=== PATIENT | male | born 1940 | race Caucasian/White ===

== ENCOUNTER 2016-12-07 08:36 | Observation (INO) | payer MEDICARE ==
[~2016-12-07] VITALS: Ht 185.4 cm; Wt 109.7 kg
[2016-12-07] MEDS: methylPREDNISolone ACETATE 40 MG/ML VIAL ONE ×2 (07:10→12:37)
[~2016-12-07 08:36] MED LIST: ALPR0.5T3 PO; ASPI81CH CHEW; ATEN50TA PO; AZEL1SPR2 NASAL; BUPIVACAINE HCL PF 0.5% 30 ML VIAL ONE; BUTATAB6 PO; CETI10CA3 PO; FISH1000 PO; FLUT50SP NASAL; GELFOAM SIZE 100 ONE; GENTAMICIN SULFATE 80 MG/2 ML VIAL ONE; HYDR-3583 PO; INDO50CA PO; MELO7.5T4 PO; NITR0.4S SL; SIMV20TA PO; THROMBIN (TOPICAL) 5,000 UNIT VIAL ONE; TIZA4CAP3 PO; VITA10004 PO; VITA100064 PO; ceFAZolin 2 GM PREMIX 50 ML ONE
[2016-12-07 09:15] VITALS: BP 157/93; PULSE 52; RESP 20; TEMP 97.8; O2SAT 99
[2016-12-07] MEDS ORDERED: CHLORHEXIDINE GLUCONATE 2 % 1 PACK (2 CLOTHS) TOPICAL PRN (09:30)
[2016-12-07] MEDS: SODIUM CHLOR 0.9% 1000 ML INJ 1,000 ML IV SCH (09:30)
[2016-12-07] MEDS ORDERED: METOPROLOL TARTRATE 25 MG TAB PO PRN (09:30)
[2016-12-07] MEDS ORDERED: INSULIN HUMAN REGULAR 1,000 UNITS/10 ML VIAL SQ PRN (09:30)
[2016-12-07] MEDS ORDERED: SODIUM CHLORID 0.9% 500 ML IV PRN (09:30)
[2016-12-07] MEDS ORDERED: LACTATED RINGER'S 1000 ML IV PRN (09:30)
[2016-12-07] MEDS ORDERED: POVIDONE IODINE 5% (ANTISEPSIS KIT) 4 APPLICATIONS EACH NARE PRN (09:30)
[2016-12-07] MEDS ORDERED: COLA100C PO (09:43)
[2016-12-07] MEDS: VANCOMYCIN HCL 1000 MG ON-CALL/NS 250 ML IV SCH ×4 (10:10→17:22)
[2016-12-07] MEDS ORDERED: THROMBIN (TOPICAL) 5,000 UNIT VIAL ONE (11:14)
[2016-12-07] MEDS ORDERED: ACETAMINOPHEN 1000 MG/100 ML VIAL IV ONE (11:21)
[2016-12-07] MEDS ORDERED: ARTIFICIAL TEARS OPTH OINT 3.5 APPLIC/3.5 GM TUBO ONE (11:21)
[2016-12-07] MEDS ORDERED: MIDAZOLAM HCL 2 MG/2 ML VIAL ONE (11:22)
[2016-12-07] MEDS ORDERED: fentaNYL CITRATE 250 MCG/5 ML AMP ONE ×2 (11:22→15:48)
[2016-12-07] MEDS ORDERED: FAMOTIDINE 20 MG/2 ML VIAL ONE (11:27)
[2016-12-07] MEDS ORDERED: LACTATED RINGER'S 1000 ML INJ 1,000 ML IV ONE (11:39)
[2016-12-07] MEDS ORDERED: PROPOFOL 200 MG/20 ML AMP IV ONE (11:39)
[2016-12-07] MEDS ORDERED: ONDANSETRON HCL 4 MG/2 ML VIAL IV PUSH ONE (11:39)
[2016-12-07] MEDS ORDERED: ePHEDrine/NS 25 MG/5 ML SYR IV ONE (11:39)
[2016-12-07] MEDS ORDERED: SODIUM CHLORIDE 0.9% FLUSH 5 ML FLUSH IVF PRN (13:45)
[2016-12-07] MEDS ORDERED: ACETAMINOPHEN/HYDROcodone 325 MG/10 MG TAB PO PRN (13:45)
[2016-12-07] MEDS ORDERED: cloNIDine HCL 0.1 MG TAB PO/NG PRN (13:45)
[2016-12-07] MEDS ORDERED: INDOMETHACIN 50 MG CAP PO PRN (13:45)
[2016-12-07] MEDS ORDERED: MORPHINE SULFATE 4 MG/ML INJ IV PUSH PRN (13:45)
[2016-12-07] MEDS ORDERED: ONDANSETRON HCL 4 MG/2 ML VIAL IV PRN (13:45)
[2016-12-07] MEDS ORDERED: ACETAMINOPHEN 325 MG TAB PO PRN (13:45)
[2016-12-07] MEDS: SODIUM CHLORIDE 0.9% FLUSH 5 ML FLUSH IVF SCH ×2 (13:45→20:10)
[2016-12-07] MEDS ORDERED: MENTHOL LOZENGE BUCCAL PRN (13:45)
[2016-12-07] MEDS ORDERED: ALPRAZolam 0.5 MG TAB PO PRN (13:45)
[2016-12-07] MEDS ORDERED: DO NOT ADM ANY ANTICOAGULANT DRUGS PRN (16:20)
--- NOTE | 2016-12-07 16:27 | RADRPT ---
EXAM DATE/TIME: 12/07/2016 12:38 [place] COMPARISON: No previous studies available for comparison. INDICATIONS : Level localization L2-L3, L3-L4, L4-L5 laminectomy. MEDICAL HISTORY : None. SURGICAL HISTORY : None. ENCOUNTER: Initial ACUITY: 1 day PAIN SCORE: Non-responsive. LOCATION: Lumbar spine FINDINGS: Metallic probe is directed at the L2-3 interspace and the L4 pedicle. CONCLUSION: Localization as described above.. Hugo Morel MD FACR on December 07, 2016 at 16:24 Board Certified Radiologist. This report was verified electronically.
[2016-12-07] MEDS ORDERED: *morphine SULFATE 8 MG/ML PERIprocedure ONLY ONE ×3 (16:30→17:18)
--- NOTE | 2016-12-07 16:39 | PD.OP ---
Operative Report Date of Surgery: Dec 07, 2016 Preoperative Diagnosis: lumbar spinal stenosis Postoperative Diagnosis: lumbar spinal stenosis Procedure: L2-3, L3-4, L4-5 laminectomy, mesiofacetectomy, foraminotomy, microsurgical resection Surgeon: Sandeep Reno Repairer Evaporator(s): devin kemp Operation and Findings: INDICATIONS FOR THE SURGICAL PROCEDURE Mr Burns is a 76 year-old male who presented with intractable back pain and clinical evidence of neurogenic claudication with lower extremity radiculopathy. The patient has failed maximum nonsurgical management including multiple modalities of conservative treatment as well as pain management interventions by an interventional pain specialist. A surgical decompression was indicated as a last resort. The [id number] details of the procedure, indications, alternatives, risks and potential complications were fully discussed with the patient. The patient fully understood. All the questions were answered. No guarantees were given. The patient voiced requesting the procedure and provided informed consents. The patient was offered the alternative of delaying the procedure and continuing with nonsurgical management. DETAILS OF THE SURGICAL PROCEDURE After the induction of general anesthesia, endotracheal intubation was performed. A Leo catheter, bilateral DEL hose and sequential compression devices were placed and kept throughout the procedure. The patient was positioned prone on a Sohan table over a Noe frame. All pressure points were carefully padded with eggcrate mattress. The eyes were tapped shut after ointment was applied by the anesthesiologist to prevent corneal abrasion. A Ranjith hugger was placed over the exposed lower body to maintain control of the core body temperature. The lower lumbar region was prepped and draped in the usual sterile fashion. A spinal needle was placed on the paraspinal muscle and a cross-table lateral x-ray performed with a C-arm. The skin incision was made over the spinous process of L2, L3, L4 and L5 along the midline. Small subcutaneous bleeders were controlled with a bipolar. The subcutaneous tissue and thoracolumbar fascia was opened with the Bovie and the spinous process of L4 and L5 were exposed. Then, using a Rosario elevator and a Bovie a subperiosteal dissection was performed over the spinous process lamina and facet at L2- L3, L3-L4 and L4-L5 on the left side. A microdiscectomy self-retaining retractor was placed and an instrument was placed underneath the lamina of L5, and another cross-table lateral x-ray performed for radiological confirmation of the level. At this point in the procedure the operating microscope was draped in the usual sterile fashion and brought to the field. The rest of the surgical procedure was performed using microsurgical dissection technique with exception of the closure. Once the level was confirmed, a TPS drill brought to the field and a hemilaminectomy was performed at L2- L3, L3-L4 and L4-L5 on the left side in standard fashion using the AM-8 drill bit, exposing the ligamentum flavum. The superior free border of the ligamentum flavum was from the dura with a ligament dissector and the ligamentum flavum was carefully removed with a 3 mm thin footplate Kerrison. The ligament Flavum and facets were significantly hypertrophic resulting on mass effect on the dural sac. Then, the medial aspect of the facet was drilled and undermined and the exiting L5 nerve root was identified and followed towards the foramen. A foraminotomy was performed with a 3 mm Kerrison. Then, the TPS drill was used to undermine the base of the spinous process, in order to carry out the decompression across the midline to the contralateral side. The ligamentum flavum across the midline was dissected from the dura with a ligament dissector and carefully removed with a 3 mm thin footplate Kerrison. During the decompression, there was calcification of the dura in the midline, which appeared fused with the base of the spinous process. A durotomy could not be avoided during the decompression with CSF leak. An appropriate decompression of the dural sac and nerve root was achieved. The dura was then closed with 7-0 Prolene and the closure sealed with Duraseal at the end of the procedure. Epidural veins located laterally to the dural sac were carefully coagulated with a bipolar and incised with microscissors. Gentle medial retraction of the dural sac allowed inspection of the disc space. The patient had a broad-based disc protusion which combined with the hypertrophic facets and ligamentun flavum was producing significant stenosis with mass effect on the dural sac and nerve root. Microdiscectomy was not deemed necessary. A good decompression was achieved. The disc space was then irrigated with antibiotic solution. The incision was then thoroughly irrigated with antibiotic solution and hemostasis secured with the bipolar. A Valsalva maneuver failed to show any cerebrospinal fluid leak or bleeding. The incision was irrigated and closed in layers. 0 Vicryl with interrupted sutures was used to close the thoracolumbar fascia and superficial fascia. The subcutaneous tissue was closed with 3-0 Vicryl. The skin was closed with 4-0 running subcuticular Vicryl. Dermabond was applied to the skin. At the end of the procedure, the sponge, needle and instrument counts were all correct. Estimated blood loss was less than 200 cc. No blood transfusion was given. No intraoperative complications occurred. The patient received prophylactic antibiotics. The patient was then extubated and transferred to the recovery room in stable condition. Sandeep Reno MD Dec 07, 2016 16:39
[2016-12-07] MEDS: NS + KCL 20 MEQ INJ 1,000 ML IV SCH (17:00)
[2016-12-07] MEDS ORDERED: *HYDROmorphone PF 1 MG VIAL PERIprocedural Use ONLY ONE (17:35)
[2016-12-07] MEDS: ceFAZolin 2 GM PREMIX 50 ML IV SCH (18:45)
[2016-12-07] MEDS: PRAVASTATIN SOD 40 MG TAB PO SCH (20:10)
[2016-12-07] MEDS: DOCUSATE SODIUM 100 MG CAP PO SCH (20:10)
[2016-12-07 20:15] VITALS: BP 122/61; PULSE 91; RESP 18; TEMP 96.3; O2SAT 94
[2016-12-07] MEDS ORDERED: MELOXICAM 7.5 MG TAB PO SCH (21:00)
[2016-12-07] MEDS: ACETAMINOPHEN/HYDROcodone 325 MG/10 MG TAB PO PRN (22:38)
[2016-12-07] MEDS: FLUTICASONE PROPIONATE 50 MCG/ACT 16 GM NASAL SPRAY NASAL SCH (22:39)
[2016-12-08] VITALS (8 sets, daily range): BP systolic 100–129; BP diastolic 55–64; PULSE 62–90; RESP 17–19; TEMP 96.2–99.2; O2SAT 95–98
[2016-12-08] MEDS: MORPHINE SULFATE 4 MG/ML INJ IV PUSH PRN (02:38)
[2016-12-08] MEDS: NS + KCL 20 MEQ INJ 1,000 ML IV SCH ×3 (02:38→21:26)
[2016-12-08] MEDS: ceFAZolin 2 GM PREMIX 50 ML IV SCH ×2 (03:27→11:36)
[2016-12-08] MEDS: ACETAMIN 325 MG/BUTALBITAL 50 MG/CAFFEINE 40 MG TAB PO PRN ×3 (04:27→14:33)
[2016-12-08] MEDS ORDERED: NON-FORMULARY DRUG (Omega-3 Fatty Acids (Fish Oil) 1,000 MG) PO SCH (09:00)
[2016-12-08] MEDS: SODIUM CHLORIDE 0.9% FLUSH 5 ML FLUSH IVF SCH ×2 (09:19→21:24)
[2016-12-08] MEDS: CHOLECALCIFEROL (VIT D3) 1000 UNIT TAB PO SCH (09:20)
[2016-12-08] MEDS ORDERED: HYDR-3583 PO (09:20)
[2016-12-08] MEDS: PANTOPRAZOLE SOD 40 MG DELAYED RELEASE TAB PO SCH (09:20)
[2016-12-08] MEDS: CETIRIZINE HCL 10 MG TAB PO SCH (09:20)
[2016-12-08] MEDS: DOCUSATE SODIUM 100 MG CAP PO SCH ×2 (09:20→21:21)
[2016-12-08] MEDS: ATENOLOL 50 MG TAB PO SCH (09:21)
[2016-12-08] MEDS: CYANOCOBALAMIN 1,000 MCG TAB PO SCH (09:21)
[2016-12-08] MEDS: SODIUM CHLOR 0.9% 1000 ML INJ 1,000 ML IV SCH (09:22)
--- NOTE | 2016-12-08 12:29 | HHI.NSPN ---
(Shruthi Newell) Note Status Status: Progress Note (Shruthi Newell) Interval History Interval History Ms. Burns is a 76 year male who underwent a L2-3, L3-4, L4-5 laminectomy, mesiofacetectomy, foraminotomy with microsurgical resection of disc on 12/07/16. 8/10: pt doing well, remains on bed rest. (Shruthi Newell) Labs, Micro, & Vital Signs Results Date Time Temp Pulse Resp B/P Pulse Ox O2 Delivery O2 Flow Rate FiO2 12/08/16 09:59 97 Nasal Cannula 2.00 12/08/16 08:00 96.5 79 17 101/56 95 12/08/16 04:15 96.7 90 19 111/64 96 12/08/16 00:00 96.2 90 18 100/58 95 12/07/16 20:15 96.3 91 18 122/61 94 12/07/16 19:12 Nasal Cannula 2.00 12/07/16 19:00 Nasal Cannula 2.00 12/07/16 18:00 82 16 143/64 97 Nasal Cannula 2 12/07/16 17:30 80 16 148/66 97 Nasal Cannula 2 12/07/16 17:15 84 16 149/71 98 Nasal Cannula 2 12/07/16 17:00 82 16 138/67 97 Nasal Cannula 2 12/07/16 16:45 82 16 130/62 96 Nasal Cannula 2 12/07/16 16:30 80 16 127/58 96 Nasal Cannula 2 12/07/16 16:23 97.4 80 16 119/58 96 Nasal Cannula 2 12/08/16 07:00 Intake Total 2582 ml Output Total 950 ml Balance 1632 ml Constitutional Vital Signs Date Time Temp Pulse Resp B/P Pulse Ox O2 Delivery O2 Flow Rate FiO2 12/08/16 09:59 97 Nasal Cannula 2.00 12/08/16 08:00 96.5 79 17 101/56 95 12/08/16 04:15 96.7 90 19 111/64 96 12/08/16 00:00 96.2 90 18 100/58 95 12/07/16 20:15 96.3 91 18 122/61 94 12/07/16 19:12 Nasal Cannula 2.00 12/07/16 19:00 Nasal Cannula 2.00 12/07/16 18:00 82 16 143/64 97 Nasal Cannula 2 12/07/16 17:30 80 16 148/66 97 Nasal Cannula 2 12/07/16 17:15 84 16 149/71 98 Nasal Cannula 2 12/07/16 17:00 82 16 138/67 97 Nasal Cannula 2 12/07/16 16:45 82 16 130/62 96 Nasal Cannula 2 12/07/16 16:30 80 16 127/58 96 Nasal Cannula 2 12/07/16 16:23 97.4 80 16 119/58 96 Nasal Cannula 2 12/08/16 07:00 Intake Total 2582 ml Output Total 950 ml Balance 1632 ml (Shruthi Newell) Review of Systems/Exam Exam Mr. Burns is alert, on bed rest. Speech is appropriate. No apparent distress. Cranial nerve: pupils equal. Facial motor are symmetric Neck is soft and supple Muscle strength is normal in all muscle groups of both upper and lower extremities. Bilateral plantar flexion response. Respiratory: clear (Shruthi Newell) Medications Current Medications Current Medications Medications (Trade) Dose Ordered Sig/Kevyn Route PRN Reason Start Time Stop Time Status Last Admin Dose Admin Sodium Chloride 1,000 ml @ 30 mls/hr Q24H IV 12/07/16 09:30 Lactated Ringer's 1,000 ml @ 30 mls/hr Q24H PRN IV SEE LABEL COMMENTS 12/07/16 09:30 12/10/16 09:29 Sodium Chloride 500 ml @ 30 mls/hr [id number] PRN IV SEE LABEL COMMENTS 12/07/16 09:30 12/10/16 09:29 Potassium Chloride/Sodium Chloride (NS + KCl 20 Meq Inj) 1,000 ml @ 100 mls/hr Q10H IV 12/07/16 13:36 12/08/16 09:22 IV Flush (NS Flush) 2 ml UNSCH PRN IVF FLUSH AFTER USING IV ACCESS 12/07/16 13:45 IV Flush 2 ml 2 ml BID IVF 12/07/16 13:45 12/08/16 09:19 Cefazolin Sodium/ Dextrose (Ancef 2 Gm Premix) 50 ml @ 100 mls/hr Q8H IV 12/07/16 20:00 12/08/16 12:29 12/08/16 11:36 Docusate Sodium (Colace) 100 mg BID PO 12/07/16 21:00 12/08/16 09:20 Pantoprazole Sodium (Protonix) 40 mg DAILY PO 12/08/16 09:00 12/08/16 09:20 Ondansetron HCl (Zofran Inj) 4 mg Q6H PRN IV NAUSEA OR VOMITING 12/07/16 13:45 Acetaminophen/ Hydrocodone Bitart ([place] 10-325 Mg) 1 tab Q4H PRN PO PAIN SCALE 1 TO 5 12/07/16 13:45 12/07/16 22:38 Acetaminophen/ Hydrocodone Bitart ([place] 10-325 Mg) 2 tab Q4H PRN PO PAIN SCALE 6 TO 10 12/07/16 13:45 Morphine Sulfate (Morphine Inj) 2 mg Q2H PRN IV PUSH PAIN SCALE 1 TO 6 12/07/16 13:45 Morphine Sulfate (Morphine Inj) 4 mg Q2H PRN IV PUSH PAIN SCALE 7 TO 10 12/07/16 13:45 12/08/16 02:38 Clonidine (Catapres) 0.1 mg Q6H PRN PO/NG SYS BP GREATER THAN 170 MMHG 12/07/16 13:45 Acetaminophen (Tylenol) 650 mg Q4H PRN PO TEMPERATURE > 101.5 F 12/07/16 13:45 Menthol ([place] Lizzette) 1 lozenge UNSCH PRN BUCCAL SORE THROAT 12/07/16 13:45 Alprazolam (Xanax) 0.5 mg Q4H PRN PO ANXIETY 12/07/16 13:45 Atenolol (Tenormin) 50 mg DAILY PO 12/08/16 09:00 Acetaminophen/ Butalbital/ Caffeine (Fioricet 325-50-40) 1 tab DAILY PRN PO HEADACHE 12/07/16 13:45 12/08/16 09:20 Cholecalciferol (Vitamin D3) 1,000 units DAILY PO 12/08/16 09:00 12/08/16 09:20 Cyanocobalamin (Vitamin B12) 1,000 mcg DAILY PO 12/08/16 09:00 12/08/16 09:21 Fluticasone Propionate (Flonase Temo Spr) 1 spray HS NASAL 12/07/16 21:00 12/07/16 22:39 Meloxicam (Mobic) 7.5 mg BID PO 12/07/16 21:00 Hold Tizanidine HCl (Zanaflex) 4 mg TID PO 12/07/16 18:00 12/08/16 09:20 Cetirizine HCl (ZyrTEC) 10 mg DAILY PO 12/08/16 09:00 12/08/16 09:20 Pravastatin Sodium (Pravachol) 40 mg HS PO 12/07/16 21:00 12/07/16 20:10 Miscellaneous Information ALL NURSING DEPARTME... UNSCH PRN .XX SEE LABEL COMMENTS 12/07/16 16:20 12/08/16 16:19 (Shruthi Newell) Medical Decision Making MDM Remarks 76 y/o male s/p L2-3, L3-4, L4-5 laminectomy, mesiofacetectomy, foraminotomy, microsurgical resection of disc on 12/07/16 (Shruthi Newell) Plan Plan Remarks cont strict bed rest today, log roll only, keep dorado in until tomorrow when he will be cleared OOB SCDs and TEDs for dvt, start sq lovenox for chem proph IS every hour (Shruthi Newell) Attending Statement The exam, history, and the medical decision-making described in the above note were completed with the assistance of the mid-level provider. I reviewed and agree with the findings presented. I attest that I had a [id number] encounter with the patient on the same day, and personally performed and documented my assessment and findings in the medical record. (Sandeep Reno MD) Shruthi Newell Dec 08, 2016 12:29 Sandeep Reno MD Dec 10, 2016 22:11
[2016-12-08] MEDS: ENOXAPARIN SODIUM 40 MG/0.4 ML SYRINGE SQ SCH (12:54)
[2016-12-08] MEDS: ACETAMINOPHEN/HYDROcodone 325 MG/10 MG TAB PO PRN ×2 (17:26→21:23)
[2016-12-08] MEDS: PRAVASTATIN SOD 40 MG TAB PO SCH (21:21)
[2016-12-08] MEDS: FLUTICASONE PROPIONATE 50 MCG/ACT 16 GM NASAL SPRAY NASAL SCH (21:26)
[2016-12-09] MEDS: MORPHINE SULFATE 4 MG/ML INJ IV PUSH PRN ×3 (00:30→05:50)
[2016-12-09] MEDS: ACETAMINOPHEN/HYDROcodone 325 MG/10 MG TAB PO PRN ×2 (04:19→10:32)
[2016-12-09 04:45] VITALS: BP 137/65; PULSE 70; RESP 18; TEMP 98; O2SAT 95
[2016-12-09] MEDS: NS + KCL 20 MEQ INJ 1,000 ML IV SCH (05:36)
[2016-12-09 08:00] VITALS: BP 142/71; PULSE 71; RESP 20; TEMP 97.9; O2SAT 96
[2016-12-09] MEDS: SODIUM CHLOR 0.9% 1000 ML INJ 1,000 ML IV SCH (09:30)
--- NOTE | 2016-12-09 09:30 | HHI.DCPOC ---
Discharge Care Plan Diagnosis: (1) S/P lumbar laminectomy Goals to Promote Your Health * To prevent worsening of your condition and complications * To maintain your health at the optimal level Directions to Meet Your Goals Take your medications as prescribed Follow your dietary instruction Follow activity as directed Keep your appointments as scheduled Take your immunizations and boosters as scheduled If your symptoms worsen call your PCP, if no PCP go to Urgent Care Center or Emergency Room Smoking is Dangerous to Your Health. Avoid second hand smoke Call the 24-hour hour crisis hotline for domestic abuse at Shruthi Newell Dec 09, 2016 09:30
--- NOTE | 2016-12-09 09:30 | HHI.FF ---
Face to Face Verification Diagnosis: (1) S/P lumbar laminectomy Physical Therapy Order: Improve ambulation, Strength and gait training (gentle leg exercises as patient tolerates) Home Health Nursing Order: Signs/symptoms of disease process Medication education-adverse effect Wound care and dressing changes Nursing assessment with vital signs I have seen patient Ranjith BurnsJr on 12/09/16. My clinical findings support the need for the requested home health care services because: Deconditioned w/ increased weakness High risk of falls I certify that my clinical findings support that this patient is homebound because: Post-op weakness Unsteady gait/balance Shruthi Newell Dec 09, 2016 09:30
[2016-12-09] MEDS: SODIUM CHLORIDE 0.9% FLUSH 5 ML FLUSH IVF SCH (09:34)
[2016-12-09] MEDS: PANTOPRAZOLE SOD 40 MG DELAYED RELEASE TAB PO SCH (09:36)
[2016-12-09] MEDS: DOCUSATE SODIUM 100 MG CAP PO SCH (09:36)
[2016-12-09] MEDS: CETIRIZINE HCL 10 MG TAB PO SCH (09:37)
[2016-12-09] MEDS: ATENOLOL 50 MG TAB PO SCH (09:37)
[2016-12-09] MEDS: CYANOCOBALAMIN 1,000 MCG TAB PO SCH (09:37)
[2016-12-09] MEDS: CHOLECALCIFEROL (VIT D3) 1000 UNIT TAB PO SCH (09:37)
--- NOTE | 2016-12-09 09:42 | HHI.NSPN ---
(Shruthi Newell) Note Status Status: Progress Note (Shruthi Newell) Interval History Interval History Ms. Burns is a 76 year male who underwent a L2-3, L3-4, L4-5 laminectomy, mesiofacetectomy, foraminotomy with microsurgical resection of disc on 12/07/16. 12/08: pt doing well, remains on bed rest. 12/09: pain controlled now, slightly worsens with movement. denies new weakness , fevers or chills. (Shruthi Newell) Labs, Micro, & Vital Signs Results Date Time Temp Pulse Resp B/P Pulse Ox O2 Delivery O2 Flow Rate FiO2 12/09/16 04:45 98.0 70 18 137/65 95 12/09/16 02:59 18 12/08/16 23:35 99.2 75 17 129/64 96 12/08/16 20:50 96.8 69 18 119/64 97 12/08/16 16:00 97.3 62 18 109/62 98 12/08/16 13:00 Room Air 12/08/16 12:00 96.2 68 17 104/55 98 12/08/16 09:59 97 Nasal Cannula 2.00 12/09/16 07:00 Intake Total 5331 ml Output Total 3300 ml Balance 2031 ml Constitutional Vital Signs Date Time Temp Pulse Resp B/P Pulse Ox O2 Delivery O2 Flow Rate FiO2 12/09/16 04:45 98.0 70 18 137/65 95 12/09/16 02:59 18 12/08/16 23:35 99.2 75 17 129/64 96 12/08/16 20:50 96.8 69 18 119/64 97 12/08/16 16:00 97.3 62 18 109/62 98 12/08/16 13:00 Room Air 12/08/16 12:00 96.2 68 17 104/55 98 12/08/16 09:59 97 Nasal Cannula 2.00 12/09/16 07:00 Intake Total 5331 ml Output Total 3300 ml Balance 2031 ml (Shruthi Newell) Review of Systems/Exam Exam Mr. Burns is alert. Speech is fluent. No acute distress. Cranial nerve: pupils equal. Facial motor are symmetric Neck is soft and supple Muscle strength is normal in all muscle groups of both upper and lower extremities. Bilateral plantar flexion response. Respiratory: clear Surgical wound is clean and dry, sutures intact. (Shruthi Newell) Medications Current Medications Current Medications Medications (Trade) Dose Ordered Sig/Kevyn Route PRN Reason Start Time Stop Time Status Last Admin Dose Admin Sodium Chloride 1,000 ml @ 30 mls/hr Q24H IV 12/07/16 09:30 Lactated Ringer's 1,000 ml @ 30 mls/hr Q24H PRN IV SEE LABEL COMMENTS 12/07/16 09:30 12/10/16 09:29 Sodium Chloride 500 ml @ 30 mls/hr [id number] PRN IV SEE LABEL COMMENTS 12/07/16 09:30 12/10/16 09:29 Potassium Chloride/Sodium Chloride (NS + KCl 20 Meq Inj) 1,000 ml @ 100 mls/hr Q10H IV 12/07/16 13:36 12/08/16 21:26 IV Flush (NS Flush) 2 ml UNSCH PRN IVF FLUSH AFTER USING IV ACCESS 12/07/16 13:45 IV Flush (NS Flush) 2 ml BID IVF 12/07/16 13:45 12/09/16 09:34 Docusate Sodium (Colace) 100 mg BID PO 12/07/16 21:00 12/09/16 09:36 Pantoprazole Sodium (Protonix) 40 mg DAILY PO 12/08/16 09:00 12/09/16 09:36 Ondansetron HCl (Zofran Inj) 4 mg Q6H PRN IV NAUSEA OR VOMITING 12/07/16 13:45 Acetaminophen/ Hydrocodone Bitart ([place] 10-325 Mg) 1 tab Q4H PRN PO PAIN SCALE 1 TO 5 12/07/16 13:45 12/09/16 10:32 Acetaminophen/ Hydrocodone Bitart ([place] 10-325 Mg) 2 tab Q4H PRN PO PAIN SCALE 6 TO 10 12/07/16 13:45 Morphine Sulfate (Morphine Inj) 2 mg Q2H PRN IV PUSH PAIN SCALE 1 TO 6 12/07/16 13:45 Morphine Sulfate (Morphine Inj) 4 mg Q2H PRN IV PUSH PAIN SCALE 7 TO 10 12/07/16 13:45 12/09/16 05:50 Clonidine (Catapres) 0.1 mg Q6H PRN PO/NG SYS BP GREATER THAN 170 MMHG 12/07/16 13:45 Acetaminophen (Tylenol) 650 mg Q4H PRN PO TEMPERATURE > 101.5 F 12/07/16 13:45 Menthol ([place] Lizzette) 1 lozenge UNSCH PRN BUCCAL SORE THROAT 12/07/16 13:45 Alprazolam (Xanax) 0.5 mg Q4H PRN PO ANXIETY 12/07/16 13:45 Atenolol (Tenormin) 50 mg DAILY PO 12/08/16 09:00 12/09/16 09:37 Acetaminophen/ Butalbital/ Caffeine (Fioricet 325-50-40) 1 tab DAILY PRN PO HEADACHE 12/07/16 13:45 12/08/16 14:33 Cholecalciferol (Vitamin D3) 1,000 units DAILY PO 12/08/16 09:00 12/09/16 09:37 Cyanocobalamin (Vitamin B12) 1,000 mcg DAILY PO 12/08/16 09:00 12/09/16 09:37 Fluticasone Propionate (Flonase Temo Spr) 1 spray HS NASAL 12/07/16 21:00 12/08/16 21:26 Meloxicam (Mobic) 7.5 mg BID PO 12/07/16 21:00 Hold Tizanidine HCl (Zanaflex) 4 mg TID PO 12/07/16 18:00 12/09/16 09:36 Cetirizine HCl (ZyrTEC) 10 mg DAILY PO 12/08/16 09:00 12/09/16 09:37 Pravastatin Sodium (Pravachol) 40 mg HS PO 12/07/16 21:00 12/08/16 21:21 Enoxaparin Sodium (Lovenox Inj) 40 mg Q24H SQ 12/08/16 13:00 12/08/16 12:54 (Shruthi Newell) Medical Decision Making MDM Remarks 76 y/o male s/p L2-3, L3-4, L4-5 laminectomy, mesiofacetectomy, foraminotomy, microsurgical resection of disc on 12/07/16 (Shruthi Newell) Plan Plan Remarks clear OOB today to ambulate, PT consult dc dorado catheter clear to dc home with [facility] PT f/u in office for suture removal, (Shruthi Newell) Attending Statement The exam, history, and the medical decision-making described in the above note were completed with the assistance of the mid-level provider. I reviewed and agree with the findings presented. I attest that I had a [id number] encounter with the patient on the same day, and personally performed and documented my assessment and findings in the medical record. (Sandeep Reno MD) Shruthi Newell Dec 09, 2016 09:41 Sandeep Reno MD Dec 10, 2016 22:17
[2016-12-09 10:34] VITALS: O2SAT 93
[2016-12-09 12:00] VITALS: BP 94/58; PULSE 83; RESP 16; TEMP 96.4; O2SAT 94
[2016-12-09] MEDS: ENOXAPARIN SODIUM 40 MG/0.4 ML SYRINGE SQ SCH (13:13)
[2017-01-04] MEDS ORDERED: CEPH-460 PO (11:15)
--- NOTE | 2017-01-06 13:40 | HHI.DS ---
Discharge Summary Admission Date Dec 07, 2016 at 13:37 Discharge Date: Jan 09, 2017 Admitting Diagnosis s/p lumbar laminectomy (1) S/P lumbar laminectomy ICD Code: Z98.890 - Other specified postprocedural states Status: Acute Brief History Mr. Burns is a 76 year-old male who presented with intractable back pain and clinical evidence of neurogenic claudication with lower extremity radiculopathy. The patient has failed maximum nonsurgical management including multiple modalities of conservative treatment as well as pain management interventions by an interventional pain specialist. A surgical decompression was indicated as a last resort. Imaging Last Impressions Lumbar Spine X-Ray 12/07/16 0000 Signed Impressions: Service Date/Time: Wednesday, December 07, 2016 12:38 - CONCLUSION: Localization as described above.. Hugo Morel MD [facility] Mr. Burns underwent L2-3, L3-4, L4-5 laminectomy, mesiofacetectomy, foraminotomy, microsurgical resection on Dec 07, 2016 for lumbar spinal stenosis. He was kept on bed rest following surgery. Patient was then cleared OOB and he was discharged home with home health care in stable conditions. Ordered to return to office 12/21/16 for suture removal per discharge orders. Wound care and activity restrictions were discussed. Pt Condition on Discharge: Stable Discharge Disposition: Disch w/ Home Health Serv Discharge Instructions DIET: Follow Instructions for: Heart Healthy Diet ACTIVITIES You can perform: Weight Bearing As Romel ADDITIONAL Activity Instructio: Avoid strenuous actiivies, heavy lifting, bending, twisting, pushing, pulling, or any other activiest thay may place stress on the lumbar spine. Wear corset brace whent out of bed. Avoid falls, use assistive devices tire cord weaver as needed when ambulating. Follow up Referrals: SNF/SNF/HH with [facility] New Medications: Hydrocodone-Acetaminophen (Hydrocodone-Acetaminophen) 10-325 mg Tab 1 TAB PO Q8HR PRN for PAIN SCALE 1 TO 10, #90 TAB 0 Refills Continued Medications: Alprazolam (Alprazolam) 0.5 Mg Tab 0.5 MG PO Q4H PRN for ANXIETY, TAB 0 Refills Aspirin (Aspirin) 81 Mg Chew 81 MG CHEW DAILY, TAB 0 Refills Atenolol (Atenolol) 50 Mg Tab 50 MG PO DAILY, #93 Azelastine Nasal [place] (Azelastine Nasal [place]) 0.1% [place] 2 INH NASAL HS, #30 Pixetvjsdm-Fqesqcbhutgna-Czmlvgze (Vwhjuiadix-Qmrrnxttknyab-Jpkftwsw) 50-325-40 Mg Tab 1 TAB PO DAILY PRN for HEADACHE, #60 Cetirizine HCl (Zyrtec) 10 Mg Capsule 10 MG PO DAILY Cholecalciferol (Vitamin D3) 1,000 Unit Tab 1000 UNITS PO DAILY for Nutritional Supplement, #1 BOTTLE 0 Refills Cyanocobalamin (Vitamin B12 Tr) 1,000 Mcg Tab 1000 MCG PO DAILY, #1 BOTTLE Docusate Sodium (Colace) 100 Mg Capsule 100 MG PO DAILY Fluticasone Nasal [place] (Fluticasone Nasal [place]) 50 Mcg/Act Naspr 2 INH NASAL HS, #16 Hydrocodone-Acetaminophen (Hydrocodone-Acetaminophen) 10-325 mg Tab 2 TAB PO TID, #90 Indomethacin (Indomethacin) 50 Mg Cap 75 MG PO DAILY PRN for pain, CAP 0 Refills Take with food, milk, or antacids to decrease stomach adverse effects. Meloxicam (Meloxicam) 7.5 Mg Tab 1 TAB PO BID, #60 Nitroglycerin SL (Nitrostat SL) 0.4 Mg Subl 1 TAB SL DIRECTED, #100 [place]fay-3 Fatty Acids (Fish Oil) 1,000 Mg Cap 1000 MG PO DAILY Simvastatin (Simvastatin) 20 Mg Tab 1 TAB PO HS, #90 Tizanidine (Tizanidine) 4 Mg Cap 4 MG PO TID for Muscle Spasm, CAP 0 Refills Shruthi Newell Jan 06, 2017 13:40
[2017-02-16] MEDS ORDERED: BACT800T5 PO (10:50)
== END 2016-12-09 14:18 | disposition home or self-care (01) ==
LOC: HSDC 08:36 → HSDI 13:37 → N06A 19:01
PROVIDERS: ADMIT Neurological Surgery; ATTEND Neurological Surgery
DX: M48.06 Spinal stenosis, lumbar region (principal); M54.16 Radiculopathy, lumbar region; M54.9 Dorsalgia, unspecified; I10 Essential (primary) hypertension; I25.10 Atherosclerotic heart disease of native coronary artery without angina pectoris; Z95.5 Presence of coronary angioplasty implant and graft; I25.2 Old myocardial infarction; E66.9 Obesity, unspecified; Z68.31 Body mass index [BMI] 31.0-31.9, adult; G62.9 Polyneuropathy, unspecified; Z87.891 Personal history of nicotine dependence; Z79.82 Long term (current) use of aspirin; Z79.899 Other long term (current) drug therapy
CPT/HCPCS: 00630; 63047; 63048; 72020; 76000; 94150; 96365; 96372; 96375; 96376; 97162; G0378; G8987; G8988; J0131; J0690; J1170; J1580; J1650; J2250; J2270; J2405; J3010; J3370; J3480; J7050; J7120; L0627; J1030